=== PATIENT | female | born 1960 | race African-American/Black ===

== ENCOUNTER 2017-12-31 23:00 | Emergency (ER) | payer MEDICARE ==
[~2017-12-31] VITALS: Ht 175.3 cm; Wt 122.5 kg
--- NOTE | 2017-12-31 23:00 | NUR ---
BIB DAUGHTER FOR UNWITNESSED GLF C/O LEFT SIDE PAIN AND LAC TO LEFT BROW AND CHIN +KO NOT ON BLOOD THINNERS. NO SOB. PAIN 06/19. WILL CONTINUE TO MONITOR FOR ANY CHANGES DURING THE SHIFT
[2018-01-01] MEDS ORDERED: LIDOCAINE 2% 20 ML MDV ONE (00:20)
[2018-01-01] MEDS ORDERED: CEPHALEXIN MONOHYDRATE 500 MG CAPSULE PO ONE ×2 (00:21→00:30)
[2018-01-01] MEDS ORDERED: TDAP [DIPH/PERTUSSIS/TET] 0.5 ML VIAL IM ONE ×2 (00:21→00:30)
--- NOTE | 2018-01-01 00:55 | NUR ---
PT ATTEMPTING TO LEAVE STATING "I GOTTA GO. MY DAUGHTER HAS A TEST AND I FEEL BAD"
--- NOTE | 2018-01-01 01:04 | NUR ---
PT OFF TO CT
[2018-01-01 01:51] VITALS: BP 129/72
== END 2018-01-01 02:11 | disposition home or self-care (01) ==
LOC: ER 23:04
DX: S01.81XA Laceration without foreign body of other part of head, initial encounter (principal); F10.129 Alcohol abuse with intoxication, unspecified; E11.9 Type 2 diabetes mellitus without complications; G89.29 Other chronic pain; J45.909 Unspecified asthma, uncomplicated; Z88.0 Allergy status to penicillin; Z98.890 Other specified postprocedural states; W01.198A Fall on same level from slipping, tripping and stumbling with subsequent striking against other object, initial encounter; Y93.89 Activity, other specified; Y92.89 Other specified places as the place of occurrence of the external cause; Y99.8 Other external cause status
CPT/HCPCS: 70450-TC; 72125-TC; 90715; A4606; A6402; J3490; Z7610